=== PATIENT | female | born 1960 | race Caucasian/White ===

== ENCOUNTER 2023-11-22 11:44 | Outpatient (REF) | payer OTHER, SELFPAY ==
[2023-11-23 08:44] LABS: H Pylori Breath Test Negative (Negative)
== END 2023-11-22 11:45 | disposition home or self-care (01) ==
LOC: HO.LNP 11:44
PROVIDERS: PCP Family Medicine; Visit Provider Nurse Practitioner
DX: Z01.818 Encounter for other preprocedural examination (principal); K59.09 Other constipation; K21.9 Gastro-esophageal reflux disease without esophagitis; Z12.11 Encounter for screening for malignant neoplasm of colon
CPT/HCPCS: 83013; 99202

== ENCOUNTER 2023-11-22 11:44 | Outpatient (AMB) | payer MEDICARE, MEDICAID, SELFPAY ==
--- NOTE | 2023-11-22 11:49 | MHC.OFFVIS ---
Vital Signs 11/22/23 12:07 Height 5 ft 4 in Weight 149 lb 7.574 oz BMI 25.7 BP 107/60 Blood Pressure Location Lt brachial Position Sitting Pulse 72 Intake Visit Reasons: Abd bloating and constipation Intake Note: Patient presents to in office today CC: Patient c/o constipation for years and years but a few months ago she began to experience heartburn and burping a lot. She also states that even if she eats a little bit her abdomen becomes very bloated and big . She states that when she goes to the bathroom she feels like the stool is stuck somewhere and like a balloon . 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 Apparently she is also due for screening colonoscopy. She is referred by [facility] in [facility]. PMX History thyroid cancer Hypothyroid High cholesterol Osteopenia Varicose veins Insomnia Chronic low back pain/lumbar degenerative disc disease with facet arthropathy * SURGICAL HISTORY Subtotal thyroidectomy * ALLERGIES: NKDA * Familytic LABS: none since 2020 TODAY'S VISIT She has had >30 years of CIC. Her BM's and very dry, hard, and small balls. She is having a great deal of bloating and gas trapping. she feels like something is blocking it. She tries to eat a lot of fruits and vegetables but the relief is variable. She is taking 1 senna every night with also variable results. She at times uses tap water enema. She has not had a colonoscopy before, but watched her prep and she does not think she could do this r/t the taste and the volume. There is no known FHX crc or polyps. We watch the [employer] video and she is agreeable to this. I suggest increasing the senna to 2 tabs or alt 1 with 2 qod. She had an episode with dyspepsia and severe GERD with heartburn and her primary care provider gave her some sort of acid reducing medication which she took for brief time. This seemed to make it better and then she stopped it because she dislikes being on pills for any length of time. It is still improve but she will have breakthrough especially with certain foods. I tell her that this is common with constipation and usually once we get the bowels moving better the heartburn will also improve. If it still needs work after this of course we will continue to work on it. I think an H pylori breath test would also be beneficial since it is simple to do and easy to treat as a possible contributing cause. Return office visit in 8 weeks [facility] Medical History (Updated 11/22/23 @ 17:01 by KATHRYN Barriga) Post-surgical hypothyroidism Varicose veins of left leg with edema Osteopenia Insomnia Hypercholesteremia Colloid nodular goiter Chronic constipation Pap smear vag w [facility] H/O malignant neoplasm of thyroid Surgical History H/O thyroidectomy Family History Mother Endocrine disorder Gout Cardiac abnormality Social History (Updated 05/24/21 @ 14:19 by Cecily Oliva CMA) Household Members: Spouse Housing: House Are you a primary resident care manager to a significant other at home: No Do you presently have visiting nurse or other home services: No Alcohol intake: never Patient Tobacco Use Status: Never used Tobacco service: No Current occupational status: employed Current occupation: [employer] Review of Systems Const Denies fatigue, Denies fever(s), Denies night sweats, Denies poor appetite and Denies weight loss ENT Reports Normal hearing present, Denies dental pain, Denies dysphagia, Denies hearing loss, Denies mouth pain, Denies odynophagia, Denies throat swelling, Denies tongue swelling and Reports other (Dentition adequate) Card Reports no additional complaints Resp Reports no additional complaints GI Details: Denies abdominal pain, Denies melena, Denies bloating, Denies hematochezia, Reports constipation, Denies GI cramping, Denies dysphagia, Denies excessive flatus, Denies early satiety, Reports heartburn, Denies diarrhea, Denies nausea, Denies odynophagia, Denies vomiting and Denies hematemesis Skin/Breast Denies pruritus, Denies lesions, Denies rash and Denies jaundice Neuro Reports Normal hearing present and Denies Abnormal speech present Endo Denies fatigue Aller/Immun Denies throat swelling and Denies tongue swelling Physical Exam Vital Signs: Last Vital Signs Pulse 72 11/22/23 12:07 BP 107/60 11/22/23 12:07 BMI result Body Mass Index 25.7 Const General: cooperative, no acute distress, well developed and well groomed Nutritional Appearance: average body habitus and well nourished Orientation/consciousness: oriented to person, oriented to place and oriented to time Limitations: No language barrier HEENT Head: Yes normocephalic and Yes atraumatic Eyes General: appearance normal, both eyes and all related structures Pupils: Equal, round and reactive pupils present Neck Neck: Yes normal visual inspection and Yes no lymphadenopathy Thyroid: Thyroid normal Resp Effort & Inspection: normal respiratory effort and able to speak in complete sentences Auscultation: clear to auscultation bilaterally Cardio Rate: regular rate Rhythm: regular rhythm Heart sounds: Normal, physiologic split S2 sound present Peripheral pulses: radial pulses present and posterior tibial pulses present GI Inspection: No distended and No Abdominal panniculus present Palpation (GI): Soft to palpation, nontender, no guarding, not rigid and No hepatosplenomegaly present Percussion: Yes normal to percussion Auscultation: normal bowel sounds Rectal Exam - Female: deferred Skin General skin exam: no rashes or lesions noted, turgor normal, skin not dry, no jaundice, No spider nevi and no striae Rashes: no rashes Nails: normal Neuro General: oriented to person, oriented to place and oriented to time Cranial nerves: Yes Equal, round and reactive pupils present and Yes Normal hearing present Speech: No Abnormal speech present Extrem General: Yes normal to inspection, No clubbing, No cyanosis and No edema Psych Appearance: grossly normal and well kempt Mental Status: mental status grossly normal Speech and movement: Normal speech and movement present Affect: normal affect Attitude: cooperative Thought process: Normal thought process present and not confabulating Thought content: Normal thought content present Insight: Fair insight present (Psych) Judgement: Fair judgement present (Psych) Assessment & Plan Assessment & Plan (1) Chronic constipation: Code(s): K59.09 - Other constipation Category: Medical (2) Colon cancer screening: Comment: Cologuard Code(s): Z12.11 - Encounter for screening for malignant neoplasm of colon Category: Medical (3) GERD (gastroesophageal reflux disease): Code(s): K21.9 - Gastro-esophageal reflux disease without esophagitis Category: Medical Plan She has had >30 years of CIC. Her BM's and very dry, hard, and small balls. She is having a great deal of bloating and gas trapping. she feels like something is blocking it. She tries to eat a lot of fruits and vegetables but the relief is variable. She is taking 1 senna every night with also variable results. She at times uses tap water enema. She has not had a colonoscopy before, but watched her prep and she does not think she could do this r/t the taste and the volume. There is no known FHX crc or polyps. We watch the [employer] video and she is agreeable to this. I suggest increasing the senna to 2 tabs or alt 1 with 2 qod. She had an episode with dyspepsia and severe GERD with heartburn and her primary care provider gave her some sort of acid reducing medication which she took for brief time. This seemed to make it better and then she stopped it because she dislikes being on pills for any length of time. It is still improve but she will have breakthrough especially with certain foods. I tell her that this is common with constipation and usually once we get the bowels moving better the heartburn will also improve. If it still needs work after this of course we will continue to work on it. I think an H pylori breath test would also be beneficial since it is simple to do and easy to treat as a possible contributing cause. Return office visit in 8 weeks Orders: Orders Complete Blood Count Auto Diff Today K59.09 - Other constipation, Z01.818 - Encounter for other preprocedural examination H Pylori Breath Test Today Comprehensive Met. Panel Today K59.09 - Other constipation, Z01.818 - Encounter for other preprocedural examination Medications: New sennosides (senna) 17.2 mg (2 x 8.6 mg) PO BEDTIME 60 caps 6RF K59.09 - Other constipation Coding Level of Care Code New Pt Level 3 (49842) Diagnoses Chronic constipation K59.09 Colon cancer screening Z12.11 GERD (gastroesophageal reflux disease) K21.9
[2023-11-22 12:07] VITALS: BP 107/60; PULSE 72; BMI 25.7
== END 2023-11-22 13:35 | disposition home or self-care (01) ==
PROVIDERS: PCP Family Medicine; Visit Provider Nurse Practitioner
DX: K59.09 Other constipation (principal); Z12.11 Encounter for screening for malignant neoplasm of colon; K21.9 Gastro-esophageal reflux disease without esophagitis
CPT/HCPCS: 99203